=== PATIENT | male | born 1960 ===

== ENCOUNTER 2019-01-18 14:53 | Emergency (ER) | payer OTHER ==
--- NOTE | 2019-01-18 17:18 | UC ---
Back Pain HPI - HPI Summary HPI Summary: Mr. Montez was diagnosed with a kidney stone several years back. Starting last night he said some left back pain that radiates down into his left groin. He is concerned that he has another kidney stone. He's had no dysuria although after urinating the pain is worsened often. He denies fever or chills. - History of Current Complaint Chief Complaint: UCBackPain Stated Complaint: BACK PAIN Time Seen by Provider: 01/18/19 15:32 Hx Obtained From: Patient, Family/Feather Boner Onset/Duration: Gradual Onset Timing: Constant Severity Initially: Mild Severity Currently: Moderate Pain Intensity: 4 Back Pain: Is Discrete @ - Left low back Character: Dull, Aching Aggravating Factor(s): Nothing Alleviating Factor(s): Nothing Associated Signs And Symptoms: Positive: Negative Related History: Similar Episode Dx As - Kidney stone - Allergies/Home Medications Allergies/Adverse Reactions: Allergies Allergy/AdvReac Type Severity Reaction Status Date / Time Penicillins Allergy unk Verified 01/18/19 15:15 Home Medications: Home Medications Tlkocrvv80/Folic AC/Nadh/Coq10 [Xyzbac 1 mg] 1 tab PO BEDTIME 01/18/19 [History Confirmed 01/18/19] PMH/Surg Hx/FS Hx/Imm Hx Previously Healthy: Yes GI/ History: Kidney Stones - Surgical History Surgical History: Yes Surgery Procedure, Year, and Place: hemmrhoidectomy 1997 - Social History Alcohol Use: Occasionally Substance Use Type: None Smoking Status (MU): Never Smoked Tobacco Review of Systems All Other Systems Reviewed And Are Negative: Yes Constitutional: Positive: Negative Motor: Positive: Negative Musculoskeletal: Positive: Other: - back pain Physical Exam - Summary Physical Exam Summary: He is nontoxic in appearance with stable vitals Triage Information Reviewed: Yes Appearance: Well-Appearing Vital Signs: Initial Vital Signs Temp 98.7 F 01/18/19 15:10 Pulse 67 01/18/19 15:10 Resp 16 01/18/19 15:10 BP 161/100 01/18/19 15:10 Pulse Ox 100 01/18/19 15:10 Vital Signs Reviewed: Yes Respiratory Exam: Normal Cardiovascular Exam: Normal Abdominal Exam: Normal Musculoskeletal Exam: Other - Left CVAT Neurological Exam: Normal Diagnostics - Radiology CT ABD/Pelvis Radiology Interpretation Completed By: Radiologist Summary of Radiographic Findings: Mild left hydronephrosis with proximal 3 mm stone. Back Pain Course/Dx - Course Course Of Treatment: He hasn't been in very much distress here. His urinalysis is unremarkable and vitals are clear. I will treat him with Flomax and tramadol for breakthrough pain and recommended he follow up with urology. - Differential Dx/Diagnosis Provider Diagnosis: Kidney stone on left side Discharge - Sign-Out/Discharge Documenting (check all that apply): Patient Departure All imaging exams completed and their final reports reviewed: Yes - Discharge Plan Condition: Fair Disposition: HOME Prescriptions: Tamsulosin CAP* [Flomax CAP*] 0.4 mg PO DAILY #7 cap traMADol TAB* [Ultram*] 50 mg PO Q6HR PRN #20 tab MDD 4 PRN Reason: Pain Patient Education Materials: Kidney Stones (ED) Referrals: Jesus Alvarado MD [Medical Doctor] - Elier Herrera MD [Medical Doctor] - - Billing Disposition and Condition Condition: FAIR Disposition: Home
== END 2019-01-18 17:27 | disposition home or self-care (01) ==
LOC: UCEAST 14:53
DX: N20.0 Calculus of kidney (principal); Z87.442 Personal history of urinary calculi; Z88.0 Allergy status to penicillin
CPT/HCPCS: 74176; 81002; 99202; G0463